=== PATIENT | female | born 1975 | race Hispanic/Latino ===

== ENCOUNTER → 2018-04-19 | Outpatient (CLI) | payer OTHER ==
--- NOTE | 2018-04-19 10:38 | Diagnostic Imaging Report ---
Exam: Lumbar spine AP lateral and sacrum AP lateral History: Low back pain Comparison: None. Findings: No fracture or malalignment. Disc spaces preserved. Facet joints intact. Sacroiliac joints intact. No abnormal soft tissue calcification or soft tissue defect. Impression: No acute osseous abnormality or significant spondylosis Signed by: Dr. Ted Calle M.D. on 04/19/2018 10:35 AM
== END ==
LOC: MAMMO 08:38
PROVIDERS: ATTEND Nurse Practitioner Adult Health
DX: Z12.31 Encounter for screening mammogram for malignant neoplasm of breast (principal); M54.5 Low back pain
CPT/HCPCS: 72110; 72220; 77067

== ENCOUNTER → 2018-08-09 | Outpatient (CLI) | payer OTHER ==
--- NOTE | 2018-08-09 10:54 | Diagnostic Imaging Report ---
Exam: Pelvic ultrasound History: Excessive/frequent menstruation. Comparison: None. Findings: Transabdominal sonographic evaluation of the pelvis. Uterus measures 10.9 x 3.8 x 5.8 cm. The endometrial stripe measures 0.6 cm. No evidence of fibroid. There are multiple Nabothian cysts. Per the patient, the right ovary is surgically absent. The right ovary is not visualized. The left ovary measures 3.4 x 2.2 x 2.2 cm. There is a simple left ovarian follicular cyst, measuring up to 2.5 cm. Doppler flow is demonstrated in the left ovary. No evidence of free fluid. Impression: No acute sonographic abnormality. Status post right oophorectomy. Signed by: Dr. Moshe Rooney MD on 08/09/2018 10:50 AM
== END ==
LOC: US 08:36
PROVIDERS: ATTEND Internal Medicine
DX: N92.1 Excessive and frequent menstruation with irregular cycle (principal)
CPT/HCPCS: 76856

== ENCOUNTER → 2019-05-18 | Outpatient (CLI) | payer OTHER | LOC: MAMMO 08:46 | PROVIDERS: ATTEND Internal Medicine | DX: Z12.31 Encounter for screening mammogram for malignant neoplasm of breast (principal) | CPT/HCPCS: 77067 ==

== ENCOUNTER → 2020-11-08 | Outpatient (CLI) | payer OTHER | LOC: MAMMO 11:55 | PROVIDERS: ATTEND Internal Medicine | DX: Z12.31 Encounter for screening mammogram for malignant neoplasm of breast (principal) | CPT/HCPCS: 77067 ==